=== PATIENT | male | born 1945 | race Caucasian/White ===

== ENCOUNTER 2016-12-11 07:44 | Day surgery (SDC) | payer MEDICARE, OTHER ==
[~2016-12-11 07:44] MED LIST: EPINEPHRINE INJ 1 MG/10 ML DISP.SYRIN ONE; FENTANYL CITRATE INJ/PF 100 MCG/2 ML AMPUL ONE; FLUMAZENIL INJ 0.5 MG/5 ML VIAL IV ONE; GLUCAGON,HUMAN RECOMB 1 MG INJ ONE; GLYCOPYRROLATE INJ 0.4 MG/2 ML VIAL ONE; NALOXONE HCL INJ/PF 0.4 MG/1 ML SDV ONE; ONDANSETRON HCL INJ/PF 4 MG/2 ML SDV ONE; PROMETHAZINE HCL INJ 25 MG/1 ML VIAL ONE
[2016-12-11] MEDS: MIDAZOLAM 2 MG/2 ML INJ ONE ×2 (08:56→09:02)
--- NOTE | 2016-12-11 09:22 | Operative Report ---
Operative Report DATE OF SURGERY: 12/11/16 PREOPERATIVE DIAGNOSIS: History of Baca esophagus ; GERD POSTOPERATIVE DIAGNOSIS: Same. 1. Distal esophagitis. 2. Mild proximal duodenitis. 3. Hiatal hernia OPERATION: 1. Esophagogastroduodenoscopy. 2. Multiple biopsies of GE junction SURGEON: ROSY SERRA SPORTS ANALYST: none ANESTHESIA: Moderate Sedation TISSUE REMOVED OR ALTERED: Biopsies of distal esophagus COMPLICATIONS: None ESTIMATED BLOOD LOSS: scant INTRAOPERATIVE FINDINGS: See below PROCEDURE: The patient was taken from the preoperative area to the main endoscopy suite where he is placed in semirecumbent position, left lateral. Monitoring devices were attached. Surgical plan and surgical timeout were conducted. After appropriate level of sedation was achieved, the flexible adult upper endoscope was advanced through the hypopharynx and down the esophagus into the stomach and into the duodenum to the third portion. The patient tolerated procedure well. The second and third portions of the duodenum were normal. There was mild duodenitis of the proximal duodenum and pyloric area. No biopsy was obtained. The scope was brought back to the pylorus into the stomach. The stomach was grossly normal. No evidence of tumor polyp or stricture. Scope was retroflexed , and there was evidence of a hiatal hernia. It was small. Stomach was decompressed. A good look at the GE junction was obtained. There was evidence of irregularity, and chronic changes at the level of the mucosa. No evidence of stricture or tumor bleeding or ulcer. 2 biopsies were obtained at the GE junction which was at 36 cm from the incisor. Scope was brought back to the rest of the esophagus which was essentially unremarkable. The hypopharynx was unremarkable. Scope was withdrawn to the patient's oropharynx. Tolerated procedure well.
--- NOTE | 2016-12-11 09:23 | PDOC DISCHARGE SUMMARY ---
Discharge Summary (SDC) - Discharge Final Diagnosis: GERD; history of Baca esophagus Date of Surgery: 12/11/16 Discharge Date: 12/11/16 Condition: Good Treatment or Instructions: [facility] [address] [address] POST ENDOSCOPY DISCHARGE INSTRUCTIONS 1. Diet: Start clear liquids that a regular diet as tolerated. 2. Resume all preoperative medications. All oral anticoagulations and aspirins can be resumed 24 hours after procedure. 3. If a polypectomy was performed some bleeding per rectum may occur. This should stop within 3 days. If not, please contact the office. 4. If you had a colonoscopy you may experience some bloating and delayed return of normal bowel function for several days, your regular bowel movement pattern should resume within a week. 5. Please contact [facility] at to make an appointment with Dr Moran for 1 to 3 weeks following procedure. 6. If you have any questions or concerns regarding your care,treatment plan or follow up, please contact our office. Discharge Diet: As Tolerated Discharge Activity: Activity As Tolerated Home Care Assistance: None Needed Report the Following to Your Physician Immediately: Shortness of Breath, Increase in Pain, Fever over 101 Degrees
[2016-12-11 10:20] VITALS: BP 100/64
== END 2016-12-11 10:30 | disposition home or self-care (01) ==
LOC: END 07:44
PROVIDERS: ATTEND Surgery
PROC: 0DB48ZX Excision of Esophagogastric Junction, Via Natural or Artificial Opening Endoscopic, Diagnostic (ICD-10-PCS; principal; 2016-12-11 08:15)
DX: K21.9 Gastro-esophageal reflux disease without esophagitis (principal); M19.90 Unspecified osteoarthritis, unspecified site; E78.5 Hyperlipidemia, unspecified; E66.9 Obesity, unspecified; Z87.891 Personal history of nicotine dependence; Z79.899 Other long term (current) drug therapy; Z79.1 Long term (current) use of non-steroidal anti-inflammatories (NSAID); Z09 Encounter for follow-up examination after completed treatment for conditions other than malignant neoplasm; Z87.19 Personal history of other diseases of the digestive system; Z68.35 Body mass index [BMI] 35.0-35.9, adult
CPT/HCPCS: 43239; 88305 ×2; J2250; J3010; J0171; J1610; J2310; J2405; J2550; J3490

== ENCOUNTER 2018-01-06 05:20 | Day surgery (SDC) | payer MEDICARE, OTHER ==
[2018-01-01 11:41] LABS: HEMATOCRIT 43.4 % (37.9-51.0); HEMOGLOBIN 14.8 g/dL (13.5-17.0); MEAN CORPUSCULAR HEMOGLOBIN 33.1 pg (27.0-33.4); MEAN CORPUSCULAR HGB CONC 34.2 g/dL (32.0-36.0); MEAN CORPUSCULAR VOLUME 97 fl (80-97); PLATELET COUNT 134 10^3/uL (150-450); RED BLOOD COUNT 4.47 10^6/uL (4.35-5.55); RED CELL DISTRIBUTION WIDTH 13.2 % (11.5-14.0); WHITE BLOOD COUNT 10.8 10^3/uL (4.0-10.5)
[~2018-01-06 05:20] MED LIST changes: +ACETAMINOPHEN 325 MG TABLET PO PRN; +CEFAZOLIN 1 GM/D5W RTU 1 GM/50 ML RTUPB IV PRN; -EPINEPHRINE INJ 1 MG/10 ML DISP.SYRIN ONE; -FENTANYL CITRATE INJ/PF 100 MCG/2 ML AMPUL ONE; -FLUMAZENIL INJ 0.5 MG/5 ML VIAL IV ONE; -GLUCAGON,HUMAN RECOMB 1 MG INJ ONE; -GLYCOPYRROLATE INJ 0.4 MG/2 ML VIAL ONE; +LACTATED RINGERS 1000 ML IV PRN; +LIDOCAINE 0.5% INJ-PF (5 MG/ML) 50 ML SDV SUBCUT PRN; -NALOXONE HCL INJ/PF 0.4 MG/1 ML SDV ONE; -ONDANSETRON HCL INJ/PF 4 MG/2 ML SDV ONE; -PROMETHAZINE HCL INJ 25 MG/1 ML VIAL ONE
[2018-01-06] MEDS ORDERED: BUPIVACAINE INJ/PF LIPOSOME/PF 266 MG/20 ML SDV ONE (06:38)
[2018-01-06] MEDS ORDERED: BUPIVACAINE HCL 0.25 % INJ/PF (2.5 MG/1 ML) 30 ML VIAL ONE (06:38)
[2018-01-06] MEDS ORDERED: FENTANYL CITRATE INJ/PF 100 MCG/2 ML AMPUL ONE (07:00)
[2018-01-06] MEDS ORDERED: MIDAZOLAM 2 MG/2 ML INJ ONE ×2 (07:00→07:02)
[2018-01-06] MEDS ORDERED: EPHEDRINE SULFATE INJ 50 MG/1 ML AMPULE ONE (07:01)
[2018-01-06] MEDS ORDERED: PROPOFOL INJ 200 MG/20 ML VIAL IV ONE (07:01)
[2018-01-06] MEDS ORDERED: HYDROMORPHONE HCL INJ/PF 2 MG/ML AMPULE ONE (07:01)
[2018-01-06] MEDS ORDERED: ONDANSETRON HCL INJ/PF 4 MG/2 ML SDV ONE (07:01)
[2018-01-06] MEDS ORDERED: DIPHENHYDRAMINE HCL 50 MG/ML VIAL IV PRN (07:40)
[2018-01-06] MEDS ORDERED: FENTANYL CITRATE INJ/PF 100 MCG/2 ML AMPUL IV PRN ×3 (07:40)
--- NOTE | 2018-01-06 08:37 | Operative Report ---
Operative Report DATE OF SURGERY: 01/06/18 PREOPERATIVE DIAGNOSIS: Right inguinal hernia POSTOPERATIVE DIAGNOSIS: Same with large cord lipoma OPERATION: 1. Right inguinal exploration. 2. Excision of cord lipoma. 3. Reinforcement of the right inguinal floor with Bard polypropylene Parietex Progrip SURGEON: ROSY SERRA HVAC MAINTENANCE TECHNICIAN: COLLETTE NGUYEN ANESTHESIA: Spinal TISSUE REMOVED OR ALTERED: Large lipoma of the cord right side COMPLICATIONS: None ESTIMATED BLOOD LOSS: Scant INTRAOPERATIVE FINDINGS: See below PROCEDURE: Patient was seen in the preop holding area with the right inguinal area was marked. It was then taken to the operating room where spinal anesthesia was induced. The patient was placed in the department position, right arm is abducted. The right groin was prepped and draped in sterile fashion. Surgical plan surgical timeout were conducted. The right inguinal area was anesthetized with quarter percent Marcaine. A standard right inguinal herniorrhaphy incision made with a knife. Subcutaneous tissue and Nicole's fascia divided with electrocautery. The fatty tissue overlying the external oblique musculature was divided. The external oblique fascia was divided along the direction of its fibers. The ilioinguinal nerve was identified and spared. The contents of the inguinal canal were then analyzed. The patient was found to have a large prolapsing cord lipoma. This is mobilized all the way to its point of origin, adjacent to the structures. It was completely freed up from its surrounding structures, and ligated at its base with a 2-0 Vicryl suture. The distal lipoma was sent to pathology. we carefully analyzed the floor the inguinal canal which was slightly patulous but intact. The inferior epigastric vessels were appreciated. The remaining contents of the inguinal canal was surrounded with a [place] drain. There was no evidence of an indirect sac. We felt the mass responsible for the patient's symptoms was the lipoma. Elected to reinforce the floor the inguinal canal with a polypropylene mesh. This was brought onto the field after inspecting for expiration date. The mesh was trimmed to the appropriate configuration and deployed onto the anterior surface of the inguinal floor. The leaves were brought around the cord structures at the 12 o'clock position. We did use 2-0 PDS sutures to secure the mesh medially against the pubic tubercle. Her graft this point felt the operation was complete. The external oblique aponeurosis was closed along direction of its fibers with 2-0 Vicryl suture, taking care to protect the ilioinguinal nerve. His fascia and skin closed with 2 and 3-0 Vicryl and skin approximated with skin glue. Subcutaneous tissue was anesthetized with Exparel 20 cc of full-strength. Patient tolerated procedure well, taken recovery room stable condition. The physician assistant vice president, Ms. Coulter, provided assistance during this case by: Assisting with retracting tissue, instillation of local anesthesia and closure of skin incisions.
[2018-01-06] MEDS ORDERED: KETOROLAC TROMETHAMINE 10 MG TABLET PO PRN (08:39)
[2018-01-06] MEDS ORDERED: ONDANSETRON HCL INJ/PF 4 MG/2 ML SDV IV PRN (08:39)
--- NOTE | 2018-01-06 08:39 | PDOC DISCHARGE SUMMARY ---
Discharge Summary (SDC) - Discharge Final Diagnosis: Right lipoma of the cord Date of Surgery: 01/06/18 Discharge Date: 01/06/18 Condition: Stable Treatment or Instructions: [facility] [place], [place] [address] Discharge Instructions: Open Abdominal Procedures (Hernia, Bowel Surgery) 1.General Information: a. DO NOT DRIVE a car or operative machinery for 1-2 weeks or as long as taking Narcotic pain medication. b. DO NOT consume alcohol, tranquilizers, sleeping medication, or any non- prescribed medication for 24 hours unless approved by your doctor or as long as taking pain medication. c. DO NOT make important decisions or sign any important papers for the first 24 hours after surgery. d. When discharged home the same day as surgery have a responsible person with you the first night. 2.Activity Restriction: 8 weeks; a. Avoid heavy lifting (> 10-15 lbs), straining abdominal muscles and sports, mowing lawn, vacuum equipment cleaner and tester and bending over a lot. b. Walking is important to avoid blood clots in the legs and deep breathing can prevent pneumonia. c. If it fine to go for walks, up and down steps, and ride in a car. 3.Treatment: a. You may shower in and get the area wet in 48 hours but you should not bathe in a tub or go swimming for 2 weeks. b. If you have skin glue over incision, leave glue intact until it falls off on its own. c. Do not use oils, powders, or lotion on your incision. 4.Medications: a. You may take prescription tablets for pain if needed, one every 6 hours (_ _Toradol_). b. Stop the narcotic when able since you cannot take it and drive and they cause constipation. You may switch to plain Tylenol, Advil, or Aleve as you transition from the narcotic. Many adults find good pain relief with Advil 600-800 mg three times a day with meal to work well and avoid narcotic use. High dose Advil should only be used for short courses since it can cause indigestion, ulcer bleeding in the stomach and kidney problems. c. You may resume all normal medications unless a change is specified by your doctors. 5.Diet: b. When discharged after hospital stay you may resume a normal diet. 6.Notify Physician If: a. Pain is not relieved by pain medication b. Persistent nausea and vomiting c. Chills, fever (above 101) d. Persistent bleeding or swelling at the operative site e. Unable to urinate for 6-8 hours f. Increased redness, drainage, or foul smelling discharge from incision 7. Follow Up Care: a. Please call our office to schedule an appointment with your doctor for 2 weeks. In the event of any postoperative problems or questions you may call our office during business hours or the On-Call surgeon through the boiler house operator at [facility]. [facility] [phone] [facility] [phone] (Ask for the surgeon medical economics consultant) b. I understand the instructions for my postoperative care as described above and a copy has been given to me. _ Witness Patient/Significant Other Date Prescriptions: Ketorolac Tromethamine [Toradol 10 mg Tablet] 10 mg PO Q6HP PRN #25 tablet PRN Reason: Referrals: LAINEY THOMAS MD [Primary Care Provider] - Discharge Diet: As Tolerated Discharge Activity: No Lifting Over 10 Pounds, No Lifting/Push/Pulling, Walk Frequently Report the Following to Your Physician Immediately: Nausea, Vomiting, Fever over 101 Degrees, Unusual Bleeding, Drainage-Foul Smelling
[2018-01-06 13:55] VITALS: BP 126/74
== END 2018-01-06 13:25 | disposition home or self-care (01) ==
LOC: OROUT 05:20
PROVIDERS: ATTEND Surgery
PROC: 0VBF0ZZ Excision of Right Spermatic Cord, Open Approach (ICD-10-PCS; 2018-01-06)
PROC: 0YU50JZ Supplement Right Inguinal Region with Synthetic Substitute, Open Approach (ICD-10-PCS; principal; 2018-01-06 07:30)
DX: K40.90 Unilateral inguinal hernia, without obstruction or gangrene, not specified as recurrent (principal); D17.6 Benign lipomatous neoplasm of spermatic cord; K21.9 Gastro-esophageal reflux disease without esophagitis; E78.5 Hyperlipidemia, unspecified; G47.30 Sleep apnea, unspecified; E66.9 Obesity, unspecified; Z79.899 Other long term (current) drug therapy; Z96.653 Presence of artificial knee joint, bilateral
CPT/HCPCS: 49505; 55520; 36415; 85027; 88304 ×2; C1781; J2250; J0690; A9270; C9290; 830; J1170; J2405; J2704; J3010; J3490

== ENCOUNTER 2020-01-31 20:50 | Emergency (ER) | payer MEDICARE, OTHER ==
--- NOTE | 2020-01-31 22:10 | ER Document Report ---
ED Medical Screen (RME) - General Chief Complaint: Fall Injury Stated Complaint: FALL Time Seen by Provider: 01/31/20 21:58 Primary Care Provider: LAINEY THOMAS MD [Primary Care Provider] - Follow up as needed TRAVEL OUTSIDE OF THE [place] IN LAST 30 DAYS: Yes - HPI Notes: 01/31/20 22:07 Patient is a 74-year-old male who presents complaining of headache and superior lateral orbit pain status post fall from the shower prior to arrival. Patient states that he slipped and hit the right side of his body. Patient also has pain to his low back and right lateral hip. Patient states that he has been ambulatory since then. He did not lose consciousness or have any nausea/vomiting. He is not on any blood thinning medications. Denies any fever, changes in vision/speech/mentation/hearing, URI, sore throat, chest pain, palpitations, syncope, cough, shortness of breath, wheeze, dyspnea, abdominal pain, nausea/vomiting/diarrhea, urinary retention, dysuria, hematuria, loss of control of bowel or bladder, numbness/tingling, saddle anesthesia, muscle paralysis/weakness, or rash. I have treated and performed a rapid initial assessment of this patient. A comprehensive ED assessment and evaluation of the patient, analysis of test results and completion of medical decision making process will be conducted by additional ED providers. PHYSICAL EXAMINATION: Overall limited exam needs further evaluation in exam room and gown. GENERAL: Well-appearing, well-nourished and in no acute distress. A&Ox4. Answers questions appropriately. Head/face: There is ecchymosis and swelling to the right superior lateral orbit. No other raccoon eyes or veloz sign. Neck: No obvious tenderness. Right hip: There is tenderness to the lateral hip area. Neuro: GCS 15, cranial is grossly intact. - Related Data Allergies/Adverse Reactions: adhesive tape Adverse Reaction (Intermediate, Verified 01/01/18 10:11) red rash morphine [Morphine] Adverse Reaction (Mild, Verified 01/01/18 10:11) ITCHING Home Medications: metoprolol Past Medical History - Social History Chew tobacco use (# tins/day): No Frequency of alcohol use: None Drug Abuse: None - Past Medical History Cardiac Medical History: Reports: Hx Hypercholesterolemia Denies: Hx Coronary Artery Disease, Hx Heart Attack, Hx Hypertension Pulmonary Medical History: Reports: Hx Pneumonia - X2 (LAST TIME OCT 2016) Denies: Hx Asthma, Hx Bronchitis, Hx COPD Neurological Medical History: Denies: Hx Cerebrovascular Accident, Hx Seizures GI Medical History: Reports: Hx Gastroesophageal Reflux Disease. Denies: Hx Hepatitis, Hx Hiatal Hernia, Hx Ulcer Musculoskeltal Medical History: Reports Hx Arthritis - BACK Infectious Medical History: Denies: Hx Hepatitis Past Surgical History: Reports: Hx Orthopedic Surgery - Right and left shoulder repair, repaired right fingers, both knee replacem, Hx Tonsillectomy. Denies: Hx Open Heart Surgery, Hx Pacemaker - Immunizations Immunizations up to date: No Hx Diphtheria, Pertussis, Tetanus Vaccination: Yes - JUN 2014 Physical Exam - Vital signs Vitals: Temp Pulse Resp BP Pulse Ox 97.3 F 91 16 133/79 H 93 01/31/20 20:56 01/31/20 20:56 01/31/20 20:56 01/31/20 20:56 01/31/20 20:56 Course - Vital Signs Vital signs: Temp Pulse Resp BP Pulse Ox 97.3 F 91 16 133/79 H 93 01/31/20 20:56 01/31/20 20:56 01/31/20 20:56 01/31/20 20:56 01/31/20 20:56 Doctor's Discharge - Discharge Referrals: LAINEY THOMAS MD [Primary Care Provider] - Follow up as needed
--- NOTE | 2020-01-31 22:43 | ER Document Report ---
ED Fall - General Chief Complaint: Fall Injury Stated Complaint: FALL Time Seen by Provider: 01/31/20 21:58 Primary Care Provider: LAINEY THOMAS MD [Primary Care Provider] - Follow up as needed Notes: A 74-year-old man presents to the emergency room history of a fall tonight at home. Apparently, he was in the shower when he slipped and fell landing on his right hip and also hitting the right side of his head. He denies loss of consciousness, he is not on any blood thinners. He complains of pain beside the right eye area with some swelling, he also complains of pain in the right hip and right buttock. TRAVEL OUTSIDE OF THE [place] IN LAST 30 DAYS: Yes - Related data Allergies/Adverse Reactions: adhesive tape Adverse Reaction (Intermediate, Verified 01/01/18 10:11) red rash morphine [Morphine] Adverse Reaction (Mild, Verified 01/01/18 10:11) ITCHING Home Medications: metoprolol Past Medical History - Social History Smoking Status: Former Smoker Chew tobacco use (# tins/day): No Frequency of alcohol use: None Drug Abuse: None Family History: None - no other family members with diarrhea Patient has suicidal ideation: No Patient has homicidal ideation: No - Past Medical History Cardiac Medical History: Reports: Hx Hypercholesterolemia Denies: Hx Coronary Artery Disease, Hx Heart Attack, Hx Hypertension Pulmonary Medical History: Reports: Hx Pneumonia - X2 (LAST TIME OCT 2016) Denies: Hx Asthma, Hx Bronchitis, Hx COPD Neurological Medical History: Denies: Hx Cerebrovascular Accident, Hx Seizures GI Medical History: Reports: Hx Gastroesophageal Reflux Disease. Denies: Hx Hepatitis, Hx Hiatal Hernia, Hx Ulcer Musculoskeletal Medical History: Reports Hx Arthritis - BACK Infectious Medical History: Denies: Hx Hepatitis Past Surgical History: Reports: Hx Orthopedic Surgery - Right and left shoulder repair, repaired right fingers, both knee replacem, Hx Tonsillectomy. Denies: Hx Open Heart Surgery, Hx Pacemaker - Immunizations Immunizations up to date: No Hx Diphtheria, Pertussis, Tetanus Vaccination: Yes - JUN 2014 Hx Pneumococcal Vaccination: 12/24/17 Review of Systems - Review of Systems Notes: Constitutional: Negative for fever. HENT: + Right lateral facial swelling. Eyes: Negative for visual changes. Cardiovascular: Negative for chest pain. Respiratory: Negative for shortness of breath. Gastrointestinal: Negative for abdominal pain, vomiting or diarrhea. Genitourinary: Negative for dysuria. Musculoskeletal: + Left hip pain, + left buttock pain Skin: Negative for rash. Neurological: Negative for headaches, weakness or numbness. 10 point ROS negative except as marked above and in HPI. Physical Exam - Vital signs Vitals: Temp Pulse Resp BP Pulse Ox 97.3 F 91 16 133/79 H 93 01/31/20 20:56 01/31/20 20:56 01/31/20 20:56 01/31/20 20:56 01/31/20 20:56 - Notes Notes: PHYSICAL EXAMINATION: Physical Exam: General: Well-nourished well-developed 74-year-old man in no acute distress HEENT: + Swelling with ecchymosis lateral to the right eye/orbital region, no hemorrhage, the eye is unaffected, pupils equal round and reactive to light, MM moist,nares clear, oropharynx clear, airway patent Neck: supple, no adenopathy, no masses. Good range of motion Lungs: clear, no wheezing, no rales no rhonchi CVS: Regular rate and rhythm no murmur gallop or rub Abdomen: Soft, active, nontender, no masses, no hepatosplenomegaly Ext: + Right hip tenderness, good range of motion at the right hip able to flex and raise the leg without difficulty., Right buttock tenderness.. Neuro: Alert and responsive, moving all 4 extremities on command, cranial nerves intact, no focal findings Skin: Intact no open lesions, no rash PSYCH: Normal mood, normal affect. Course - Re-evaluation Re-evalutation: 01/31/20 22:42 The patient was sent for CT of the head, CT maxillofacial, pelvis , cervical spine, lumbar spine. He denies loss of consciousness a cold pack is applied to the area of swelling and he is given acetaminophen for pain. Reviewed x-rays reveal no fractures or acute findings. I discussed this with the patient and his family they are satisfied with the treatment and are ready for discharge. - Vital Signs Vital signs: Temp Pulse Resp BP Pulse Ox 97.3 F 91 16 133/79 H 93 01/31/20 20:56 01/31/20 20:56 01/31/20 20:56 01/31/20 20:56 01/31/20 20:56 - Diagnostic Test Radiology reviewed: Image reviewed, Reports reviewed - CT head noncontrast: No acute fractures, no intracranial hemorrhage. CT maxillofacial: Soft tissue swelling right lateral eye, no fracture seen. C-spine x-ray: + Reverse lordosis, no fracture, no dislocation Lumbar spine x-ray: Degenerative disc disease throughout the lumbar spine, no fracture seen Pelvis x-ray: No fracture seen. Discharge - Discharge Clinical Impression: Contusion of head Qualifiers: Encounter type: initial encounter Contusion of head detail: other part of head Qualified Code(s): S00.83XA - Contusion of other part of head, initial encounter Contusion of face Qualifiers: Encounter type: initial encounter Qualified Code(s): S00.83XA - Contusion of other part of head, initial encounter Contusion of right hip Qualifiers: Encounter type: initial encounter Qualified Code(s): S70.01XA - Contusion of right hip, initial encounter Fall Qualifiers: Encounter type: initial encounter Qualified Code(s): W19.XXXA - Unspecified fall, initial encounter Condition: Good Disposition: HOME, SELF-CARE Instructions: Contusion ([facility]) Additional Instructions: You were diagnosed with a facial/head contusion. If you had a CT scan done, it did not show any evidence of serious injury or bleeding. Symptoms to expect from a concussion include nausea, mild to moderate headache, difficulty concentrating or sleeping, and mild lightheadedness. If you have these symptoms return to the emergency department or follow-up with your primary care doctor. Signs of a more serious head injury include vomiting, severe headache, excessive sleepiness or confusion, and weakness or numbness in your face, arms or legs. Return immediately to the Emergency Department if you experience any of these more concerning symptoms. Rest, avoid strenuous physical or mental activity, and avoid activities that could potentially result in another head injury until all your symptoms from this head injury are completely resolved for at least 1-2 weeks. You may use a cold compress to the areas of contusion/injury to reduce swelling and pain. HOME CARE INSTRUCTIONS & INFORMATION: Thank you for choosing us for your medical needs. We hope you're satisfied with the care you received. After you leave, you must properly care for your problem and, at the same time, observe its progress. Any condition can change. Some illnesses can change rapidly over hours or days. If your condition worsens, return to the Emergency Department or see your physician promptly. ABOUT YOUR X-RAYS AND EKG'S: If you had an EKG or X-rays taken, they have been read by the Emergency Physician. The X-rays and EKG's will also be read by a Radiologist or Reimbursement Spec within 24 hours. If discrepancies are noted, you will be notified by telephone. Please be certain the ED has a correct telephone number & address where you can be reached. Also, realize that some fractures or abnormalities do not show up on initial X-rays. If your symptoms continue, see your physician. ABOUT YOUR LABORATORY TEST: If you had laboratory tests, the results have been reviewed by the Emergency Physician. Some test results (for example cultures) may not be available for several days. You will be contacted if any test result shows you need additional treatment. Please be certain the ED has a correct telephone number and address where you can be reached. ABOUT YOUR MEDICATIONS: You will receive instructions on how to take your medicine on the prescription label you receive. Additional information may be provided by the Pharmacy. If you have questions afterwards, call the ED for clarification or further instructions. Some prescribed medications may cause drowsiness. Do not perform tasks such as driving a car or operating machinery without consulting your Pharmacist. If you feel you need a refill of pain medication, your condition will need re-evaluation. Please do not call for a refill of any medication. ABOUT YOUR SIGNATURE: Signature of this document acknowledges to followin. Understanding that you received emergency treatment and that you may be released before al medical problems are known or treated. Please be certain the ED has a correct phone number & address where you can be reached. 2. Acknowledgement that you will arrange for follow-up care as recommended. 3. Authorization for the Emergency Physician to provide information to your follow-up Physician in order to maximize your care. AT ANY TIME, IF YOUR SYMPTOMS CHANGE SIGNIFICANTLY OR WORSEN OR YOU DEVELOP NEW SYMPTOMS, RETURN TO THE EMERGENCY DEPARTMENT IMMEDIATELY FOR RE-EVALUATION. OUR GOAL IS TO PROVIDE EXCELLENT MEDICAL CARE! WE HOPE THAT WE HAVE MET YOUR EXPECTATIONS DURING YOUR EMERGENCY DEPARTMENT VISIT AND THAT YOU FEEL YOU HAVE RECEIVED EXCELLENT CARE! Referrals: LAINEY THOMAS MD [Primary Care Provider] - Follow up as needed
--- NOTE | 2020-01-31 22:50 | RADIOLOGY REPORT (SQ) ---
EXAM DESCRIPTION: CT head without contrast CLINICAL HISTORY: 74 years Male, pain s/p fall COMPARISON: None. TECHNIQUE: Axial images of the head were performed without the use of intravenous contrast, with sagittal and coronal reformatted images. This exam was performed according to our departmental dose-optimization program which includes use of Automated Exposure Control, adjustment of the mA and/or kV according to patient size and/or use of iterative reconstruction technique. FINDINGS: No skull fracture. No intracranial bleed. There is right frontal soft tissue hematoma. No evidence of acute infarct. No evidence of mass or hydrocephalus. IMPRESSION: No skull fracture. No intracranial bleed.
--- NOTE | 2020-01-31 22:53 | RADIOLOGY REPORT (SQ) ---
EXAM DESCRIPTION: CT cervical spine without contrast CLINICAL HISTORY: 74 years Male, pain s/p fall COMPARISON: None. TECHNIQUE: Axial images of the cervical spine were performed, without the use of intravenous contrast, with sagittal and coronal reformatted images This exam was performed according to our departmental dose-optimization program which includes use of Automated Exposure Control, adjustment of the mA and/or kV according to patient size and/or use of iterative reconstruction technique. FINDINGS: There is reversal of the cervical lordosis, possibly indicating muscle spasm. No fracture or dislocation. No evidence of prevertebral swelling. There are degenerative changes, most apparent in the lower cervical region. There is moderate to severe spinal stenosis in the lower cervical region. IMPRESSION: Possible muscle spasm. Degenerative changes with spinal stenosis.
--- NOTE | 2020-01-31 22:57 | RADIOLOGY REPORT (SQ) ---
Pelvis single view on 01/31/2020 at 10:43 PM CLINICAL INDICATION: Pain after fall COMPARISON: 01/14/2012 FINDINGS: Degenerative and postsurgical changes are partially imaged in the lower lumbar spine. The hips are well located. The SI joints are well aligned. There are no fractures. No significant degenerative changes are noted in the hips. IMPRESSION: No acute abnormality.
--- NOTE | 2020-01-31 23:00 | RADIOLOGY REPORT (SQ) ---
EXAM DESCRIPTION: CT facial bones without contrast CLINICAL HISTORY: 74 years Male, fall, injury, rt superior lateral orbit COMPARISON: None. TECHNIQUE: Axial images of the facial bones were performed without the use of intravenous contrast, with sagittal and coronal reformatted images. This exam was performed according to our departmental dose-optimization program which includes use of Automated Exposure Control, adjustment of the mA and/or kV according to patient size and/or use of iterative reconstruction technique. FINDINGS: There is soft tissue hematoma, lateral to the right eye. No fracture. The right orbital globe appears intact. Paranasal sinuses are clear. IMPRESSION: No fracture.
--- NOTE | 2020-01-31 23:04 | RADIOLOGY REPORT (SQ) ---
EXAM DESCRIPTION: [facility]: XR LUMBAR SPINE ANTEROPOSTERIOR, LATERAL, AND OBLIQUES Views: 2 CLINICAL HISTORY: 74 years Male; pain s/p fall; COMPARISON: None. FINDINGS: There is straightening of the normal lumbar lordosis. Degenerative disc changes are seen throughout the lumbar spine, with endplate irregularity and mild to moderate disc space narrowing at all levels. Facet arthropathy is also noted at multiple levels. L5-S1: Grade 1 retrolisthesis of L5 on S1. Moderate facet arthropathy. Visualized portions of the sacrum are intact. No acute fractures. IMPRESSION: 1. No acute fracture 2. Significant chronic degenerative changes throughout the lumbar spine.
[2020-01-31] MEDS ORDERED: ACETAMINOPHEN SOLN 325 MG/10.15 ML UDCUP PO ONE (23:22)
[2020-01-31] MEDS ORDERED: ACETAMINOPHEN 325 MG TABLET PO ONE (23:30)
[2020-02-01 00:18] VITALS: BP 130/80
== END 2020-02-01 00:15 | disposition home or self-care (01) ==
LOC: ER 20:50
DX: S00.11XA Contusion of right eyelid and periocular area, initial encounter (principal); S70.01XA Contusion of right hip, initial encounter; R51 Headache; M25.551 Pain in right hip; M25.552 Pain in left hip; W18.2XXA Fall in (into) shower or empty bathtub, initial encounter; Y93.E1 Activity, personal bathing and showering; Y92.002 Bathroom of unspecified non-institutional (private) residence as the place of occurrence of the external cause; Z87.891 Personal history of nicotine dependence
CPT/HCPCS: 99284; 72110; 72170; 70450; 70486; 72125; A9270

== ENCOUNTER → 2020-05-29 | Outpatient (CLI) | payer MEDICARE, OTHER ==
--- NOTE | 2020-05-29 16:53 | RADIOLOGY REPORT (SQ) ---
EXAM DESCRIPTION: NM WHOLE BODY BONE SCAN IMAGES COMPLETED DATE/TIME: 05/29/2020 1:39 pm REASON FOR STUDY: ABN L SP XRAY (R93.7) R93.7 ABNORMAL FINDINGS ON DIAGNOSTIC IMAGING OF PRT MS SYS COMPARISON: Radiographs of the lumbar spine and pelvis cervical spine face CT head chest x-ray RADIONUCLIDE AND DOSE: 20 millicuries Tc99m MDP. The route of agent administration: Intravenous. ADDITIONAL DRUGS AND DOSES: None. TECHNIQUE: Routine delayed images at 3 hours post radionuclide injection acquired of the bony skelet on including anterior and posterior whole-body projections and additional focused images as needed. LIMITATIONS: None. FINDINGS: BONES: There is intense uptake in both shoulders. There is degenerative uptake in the kne es pain in the lower lumbar spine and sacrum. KIDNEYS: Symmetric excretion without obstruction. OTHER: No other significant finding. IMPRESSION: Intense uptake in both shoulders concerning for trauma. Recommend radiographs. Degener ative uptake elsewhere. He overall appearance of the scan does not suggest metastatic disease to bon e, but metastases cannot entirely be excluded. COMMENT: Quality measure 147: Current bone scan is compared with any available plain radiographs, p rior bone scans, and CT/MRI. TECHNICAL DOCUMENTATION: JOB ID: [id number] 2010 [employer]- All Rights Reserved Reading location - IP/workstation name: [email or web address]
== END ==
LOC: RAD 08:41
PROVIDERS: ATTEND Physician Assistant
DX: R93.7 Abnormal findings on diagnostic imaging of other parts of musculoskeletal system (principal)
CPT/HCPCS: 78306; A9503; Q9969